=== PATIENT | male | born 1960 | race African-American/Black ===

== ENCOUNTER 2017-01-31 11:55 | Emergency (ER) | payer MEDICAID ==
[~2017-01-31] VITALS: Ht 205.7 cm; Wt 121.0 kg
[~2017-01-31 11:55] MED LIST: METH500T6; TRAM50TA3
[2017-01-31] MEDS ORDERED: IBUPROFEN 800MG TABLET PO ONE (17:45)
[2017-01-31 17:51] VITALS: BP 174/92
== END 2017-01-31 18:10 | disposition home or self-care (01) ==
LOC: ER 14:44
DX: S93.402A Sprain of unspecified ligament of left ankle, initial encounter (principal); M25.572 Pain in left ankle and joints of left foot; G89.29 Other chronic pain; F17.210 Nicotine dependence, cigarettes, uncomplicated; Z79.1 Long term (current) use of non-steroidal anti-inflammatories (NSAID); X50.1XXA Overexertion from prolonged static or awkward postures, initial encounter; Y93.89 Activity, other specified; Y92.89 Other specified places as the place of occurrence of the external cause; Y99.8 Other external cause status
CPT/HCPCS: 73610; 93971; 99284; Z7610

== ENCOUNTER 2018-12-10 10:49 | Emergency (ER) | payer MEDICAID ==
[~2018-12-10] VITALS: Ht 205.7 cm; Wt 114.0 kg
[2018-12-10] MEDS ORDERED: VANCOMYCIN 1 G PREMIX 200 ML IV SCH (15:00)
[2018-12-10] MEDS ORDERED: ONDANSETRON HCL 4MG/2ML INJ IV ONE (15:00)
[2018-12-10] MEDS ORDERED: MORPHINE SULFATE 4 MG/ML CPJ (NOT FOR IM USE) IV ONE (15:00)
[2018-12-10] MEDS ORDERED: CEFTRIAXONE 1 G PREMIX 50 ML IV ONE (15:00)
[2018-12-10 15:16] LABS: BASOPHILS % 0.3 % (0.0-2.0); EOSINOPHILS % 1.7 % (0.0-5.0); HEMATOCRIT. 40.3 % (42.0-52.0); HEMOGLOBIN. 13.5 g/dL (14.0-18.0); LYMPHOCYTES % 17.1 % (20.0-50.0); MEAN CORPUSCULAR HEMOGLOBIN 31.7 pg (28.0-32.0); MEAN CORPUSCULAR VOLUME 94.4 fL (80.0-94.0); MEAN PLATELET VOLUME 7.4 fl (7.4-10.4); MONOCYTES % 9.3 % (2.0-8.0); NEUTROPHILS % 71.6 % (40.0-76.0); PLATELET 219 x1000/uL (130-400); RED BLOOD CELL COUNT 4.27 mill/uL (4.7-6.1); RED CELL DISTRIBUTION WIDTH 13.8 % (11.6-14.6)
[2018-12-10 15:20] LABS: CHLORIDE 112 mEq/L (98-107)
[2018-12-10 16:57] VITALS: BP 125/86
== END 2018-12-10 18:28 | disposition short-term general hospital (02) ==
LOC: ER 10:49
DX: S63.613A Unspecified sprain of left middle finger, initial encounter (principal); F17.200 Nicotine dependence, unspecified, uncomplicated; W26.9XXA Contact with unspecified sharp object(s), initial encounter; Y93.9 Activity, unspecified; Y92.9 Unspecified place or not applicable
CPT/HCPCS: 36415; 73130; 80053; 85025; 85610; 96365; 96366; 96368; 96375; 99285; J0696; J2270; J2405; J3370

== ENCOUNTER 2021-02-11 13:14 | Emergency (ER) | payer MEDICAID ==
[~2021-02-11] VITALS: Ht 193 cm; Wt 91.0 kg
[~2021-02-11 13:14] MED LIST changes: +METH-773; -METH500T6
[2021-02-11] MEDS ORDERED: ONDANSETRON HCL 4MG/2ML INJ IV STA (13:50)
[2021-02-11] MEDS ORDERED: KETOROLAC 30MG/ML VIAL IV STA (13:50)
[2021-02-11] MEDS ORDERED: SODIUM CHLORIDE 0.9% 1,000 ML IV ONE (14:00)
[2021-02-11 14:25] LABS: BASOPHILS % 0.4 % (0.0-2.0); EOSINOPHILS % 1.4 % (0.0-5.0); HEMATOCRIT. 37.3 % (42.0-52.0); HEMOGLOBIN. 12.8 g/dL (14.0-18.0); LYMPHOCYTES % 31.3 % (20.0-50.0); MEAN CORPUSCULAR HEMOGLOBIN 32.2 pg (28.0-32.0); MEAN CORPUSCULAR VOLUME 93.9 fL (80.0-94.0); MEAN PLATELET VOLUME 7.5 fl (7.4-10.4); MONOCYTES % 9.3 % (2.0-8.0); NEUTROPHILS % 57.6 % (40.0-76.0); PLATELET 187 x1000/uL (130-400); RED BLOOD CELL COUNT 3.97 mill/uL (4.7-6.1); RED CELL DISTRIBUTION WIDTH 13.3 % (11.6-14.6)
[2021-02-11 14:31] LABS: CHLORIDE 110 mEq/L (98-107)
[2021-02-11 14:44] LABS: ETHANOL BLOOD 360 mg/dL
[2021-02-11 15:24] LABS: *AMPHETAMINES SCREEN URINE NEGATIVE (NEGATIVE); *BARBITURATES SCREEN URINE NEGATIVE (NEGATIVE)
[2021-02-11 15:25] LABS: *BENZODIAZEPINES SCREEN URINE NEGATIVE (NEGATIVE); *COCAINE SCREEN URINE PRESUMTIVE POSITIVE (NEGATIVE); CANNABINOID URINE SCREEN NEGATIVE (NEGATIVE); METHADONE URINE SCREEN NEGATIVE (NEGATIVE); OPIATES URINE SCREEN NEGATIVE (NEGATIVE); PHENCYCLIDINE URINE SCREEN NEGATIVE (NEGATIVE)
[2021-02-11 15:30] VITALS: BP 130/76
== END 2021-02-11 15:43 | disposition home or self-care (01) ==
LOC: ER 13:33
DX: R07.89 Other chest pain (principal); F10.129 Alcohol abuse with intoxication, unspecified; Y90.8 Blood alcohol level of 240 mg/100 ml or more; F17.290 Nicotine dependence, other tobacco product, uncomplicated; F12.10 Cannabis abuse, uncomplicated
CPT/HCPCS: 36415; 71045; 80053; 80305; 80320; 83690; 83880; 84484; 85025; 93005; 96361; 96374; 96375; 99285; 99406; J1885; J2405; J7030; Z7610; G0480

== ENCOUNTER 2023-06-30 10:54 | Emergency (ER) | payer MEDICARE, MEDICAID ==
[~2023-06-30] VITALS: Ht 188 cm; Wt 113.0 kg
[2023-06-30 11:15] VITALS: TEMP 98.2
[2023-06-30 11:44] LABS: BASOPHILS % 0.3 % (0.0-2.0); EOSINOPHILS % 0.8 % (0.0-5.0); HEMOGLOBIN. 11.6 g/dL (14.0-18.0); LYMPHOCYTES % 22.3 % (20.0-50.0); MEAN CORPUSCULAR HEMOGLOBIN 32.2 pg (28.0-32.0); MEAN CORPUSCULAR VOLUME 94.6 fL (80.0-94.0); MEAN PLATELET VOLUME 7.9 fl (7.4-10.4); MONOCYTES % 9.3 % (2.0-8.0); NEUTROPHILS % 67.3 % (40.0-76.0); PLATELET 150 x1000/uL (130-400); RED CELL DISTRIBUTION WIDTH 13.4 % (11.6-14.6); WHITE BLOOD COUNT 3.9 x1000/uL (4.5-11.0)
[2023-06-30 11:45] VITALS: BP 129/62; PULSE 86; RESP 16
[2023-06-30] MEDS ORDERED: KETOROLAC 30MG/ML VIAL IM ONE (11:45)
[2023-06-30 11:53] LABS: CHLORIDE 112 mEq/L (98-107); INDEX HEMOLYSI 1 (1-3); INDEX ICTERIC 1 (1-4); INDEX LIPEMIC 1 (1-3); POTASSIUM 3.9 mEq/L (3.5-5.1); SODIUM 141 mEq/L (136-145)
[2023-06-30 12:02] LABS: ALANINE AMINOTRANSFERASE 25 IU/L (13-61); ALBUMIN 3.5 g/dL (3.4-5.0); ASPARTATE AMINOTRANSFERASE 28 IU/L (15-37); BILIRUBIN TOTAL 0.7 mg/dL (0.1-1.0); CALCIUM 8.1 mg/dL (8.5-10.1); CARBON DIOXIDE 24 mEq/L (21-32); CREATININE 0.7 mg/dL (0.6-1.3); ETHANOL BLOOD 164 mg/dL (-10); GLUCOSE 77 mg/dL (70-105); NT PRO B-TYPE NATRIURETIC PEP 39 pg/mL (5-125); UREA NITROGEN BLOOD 9 mg/dL (7-21)
[2023-06-30] MEDS ORDERED: IBUP-2029 MT (13:49)
== END 2023-06-30 16:30 | disposition home or self-care (01) ==
LOC: ER 10:54
DX: F10.129 Alcohol abuse with intoxication, unspecified (principal); M13.861 Other specified arthritis, right knee; M13.862 Other specified arthritis, left knee; M25.462 Effusion, left knee; M25.461 Effusion, right knee; I10 Essential (primary) hypertension; Z98.890 Other specified postprocedural states; Y90.6 Blood alcohol level of 120-199 mg/100 ml
CPT/HCPCS: 80053; 80320; 83880; 85025; 36415; 73522; 73562; 93005; 96372; 99285; J1885; G0480

== ENCOUNTER 2023-07-12 12:20 | Emergency (ER) | payer MEDICARE, MEDICAID ==
[~2023-07-12] VITALS: Ht 188 cm; Wt 90.0 kg
[~2023-07-12 12:20] MED LIST changes: +IBUP-2029 MT
[2023-07-12 12:24] VITALS: O2SAT 98
[2023-07-12] MEDS ORDERED: KETOROLAC 60MG/2ML VIAL IM ONE (14:30)
[2023-07-12 16:02] VITALS: BP 135/69; PULSE 87; RESP 18; TEMP 98.2
== END 2023-07-12 16:03 | disposition home or self-care (01) ==
LOC: ER 12:39
DX: M25.561 Pain in right knee (principal); M25.562 Pain in left knee; I10 Essential (primary) hypertension; Z87.01 Personal history of pneumonia (recurrent)
CPT/HCPCS: 99283